=== PATIENT | male | born 1945 | race Caucasian/White ===

== ENCOUNTER 2017-07-12 11:34 | Emergency (ER) | payer MEDICARE, OTHER ==
--- NOTE | 2017-07-12 13:09 | Emergency Department Record ---
History of Present Illness - General Chief complaint: Extremity Problem Stated complaint: l foot injury Time Seen by Provider: 07/12/17 13:01 Source: Patient Mode of Arrival: Ambulatory Limitations: No limitations - History of Present Illness Initial comments: The patient is here due to injuring his L foot yesterday. He was cutting some wood and a large log fell onto the top of his L foot. He denies any other injury. The patient states he is able to walk with mild pain. MD Complaint: Extremity pain Onset/Timin -: Days(s) Location: Left, Foot History of Same: No Radiation: Proximal, Distal Severity scale (1-10): 2 Quality: Aching Consistency: Constant Worsens with: Walking, Weight bearing - Related Data Home Medications Medication Instructions Recorded Confirmed Last Taken Lisinopril 20 mg PO DAILY 07/12/17 07/12/17 1 Day Ago ~07/11/17 Pravastatin Sodium [Pravachol] 40 mg PO DAILY 07/12/17 07/12/17 1 Day Ago ~07/11/17 Allergies Allergy/AdvReac Type Severity Reaction Status Date / Time NO KNOWN DRUG ALLERGY Allergy HYPERSENSIT Uncoded 07/12/17 12:13 IVITY Travel Screening - Travel/Exposure Within Last 30 Days Have you traveled within the last 30 days?: No - Travel/Exposure Within Last Year Have you traveled outside the [place] in the last year?: No - Additonal Travel Details Have you been exposed to anyone with a communicable illness?: No - Travel Symptoms Symptom Screening: None Review of Systems Constitutional: Denies: Chills, Fever Eyes: Denies: Eye discharge ENT: Denies: Congestion Past Medical History - SOCIAL HISTORY Smoking Status: Never smoker Alcohol Use: None Drug Use: None - RESPIRATORY Hx Respiratory Disorders: No Comment:: slight SOB since donating kidney in Dec 2014 - CARDIOVASCULAR Hx Cardio Disorders: Yes Hx Hypertension: Yes - NEURO Hx Neuro Disorders: No - GI Hx GI Disorders: Yes Hx Rectal Bleeding: Yes - Hx Genitourinary Disorders: No Comment:: Pt did donate one kidney Dec, 2014 - ENDOCRINE Hx Endocrine Disorders: No - MUSCULOSKELETAL Hx Musculoskeletal Disorders: No - PSYCH Hx Psych Problems: No - HEMATOLOGY/ONCOLOGY Hx Hematology/Oncology Disorders: No Family Medical History Any Significant Family History?: Yes Physical Exam - General General Appearance: Alert, Cooperative, No acute distress - Head Head exam: Atraumatic, Normocephalic - Eye Eye exam: Normal appearance, PERRL - Extremities Extremities exam: Full ROM, Normal capillary refill, Tenderness (There is tenderness to the dorsal foot diffusely.). negative: Normal inspection (There is mod swelling and bruising to the dorsal mid to distal foot.) Course Vital Signs 07/12/17 12:02 Temperature 97.3 F L Pulse Rate 76 Respiratory 16 Rate Blood Pressure 129/82 Pulse Ox 98 - Reevaluation(s) Reevaluation #1: I did explain to the patient that the xrays jacob not demonstrate a fx. He is to ice and elevate the foot and use the post op shoe as directed. 07/12/17 13:11 Medical Decision Making - Data Complexity MDM Data: X-Ray Ordered and/or Reviewed - Radiology Data Radiology results: Report reviewed (L foot: No fx or dislocation.) Disposition Disposition: Discharge Clinical Impression: Contusion of foot Qualifiers: Encounter type: initial encounter Laterality: left Qualified Code(s): S90.32XA - Contusion of left foot, initial encounter Disposition: Home, Self-Care Condition: (1) Good Instructions: Foot Contusion (ED) Additional Instructions: Please wear the hard soled shoe for 5-7 days. Please ice and elevate the L foot for 2 days and use Tylenol for pain. Please see your PCP if not better in 3 days or return to the ER for recheck. Forms: Patient Portal Access Time of Disposition: 13:09 Quality - Quality Measures Quality Measures: N/A - Blood Pressure Screening View Details: Yes Does Patient Have Any of the Following: No Blood Pressure Classification: Normal BP Reading Systolic Measurement: 115 Diastolic Measurement: 73 Screening for High Blood Pressure: < Normal BP, F/U Not Required > [G8783] Pre-Hypertensive Follow-up Interventions: Referral to alternative/primary care provider.
[2017-07-12] MEDS: ACETAMINOPHEN 325 MG TAB PO ONE (13:21)
--- NOTE | 2017-07-14 12:33 | RADIOLOGY REPORT ---
EXAM: LEFT FOOT, THREE VIEWS HISTORY: PATIENT STATES THAT A TREE BRANCH FELL ON HIS LEFT FOOT YESTERDAY. PATIENT HAS BRUISING ALL ACROSS THE DISTAL METATARSALS. TECHNIQUE: Three views of the left foot were provided without comparison examinations. FINDINGS: There is no radiographic evidence of a fracture or dislocation of the left foot. Mild soft tissue swelling is noted over the distal metatarsals. No radiopaque foreign bodies are identified. Plantar enthesophytes are identified at the calcaneus. IMPRESSION: SOFT TISSUE SWELLING IS NOTED OVER THE DISTAL LEFT FOOT WITHOUT RADIOGRAPHIC EVIDENCE OF A FRACTURE OR DISLOCATION OF THE OSSEOUS STRUCTURES. JOB NUMBER: [id number] MTDD
== END 2017-07-12 13:29 | disposition home or self-care (01) ==
LOC: ER 11:34
DX: S90.32XA Contusion of left foot, initial encounter (principal); W22.8XXA Striking against or struck by other objects, initial encounter; Y93.H9 Activity, other involving exterior property and land maintenance, building and construction
CPT/HCPCS: 99283

== ENCOUNTER 2018-09-27 18:33 | Emergency (ER) | payer MEDICARE ==
[2018-09-27] MEDS ORDERED: 0.9 % SODIUM CHLORIDE 1,000 ML BAG IV ONE (19:08)
--- NOTE | 2018-09-27 19:13 | Emergency Department Record ---
History of Present Illness - General Chief Complaint: Abdominal Pain Stated Complaint: ABD PAIN Time Seen by Provider: 09/27/18 19:08 Source: Patient, Family Mode of Arrival: Ambulatory Limitations: No limitations - History of Present Illness Initial Comments: 72 yo male presents with epigastric pain for 8 days. The pain has been constant. It is an ache across the area between the umbilicus and the epigastrium. He notices it more when at rest and less when busy during the day. No vomiting, diarrhea or changes in stools. He has had a decrease in appetite this week. No radiation to the back. The pain radiates from the umbilicus to the epigastrium and occasionally in the right upper quadrant. No fevers. No shortness of breath or chest pain. The pain is not associated with exertion. He is a kidney donor and has one kidney. No other abdominal surgery. He has had diverticulitis in the past. This feels different than his diverticulitis. No endoscopy for many years. He takes Protonix every other day MD Complaint: Abdominal pain Onset/Timin -: Days(s) (8) Location: Epigastric, RUQ Radiation: None Migration to: Epigastric Severity: Moderate Severity scale (1-10): 3 Quality: Burning Consistency: Constant Improves With: Nothing Worsens With: Nothing Associated Symptoms: Denies other symptoms - Related Data Home Medications Medication Instructions Recorded Confirmed Last Taken Aspirin, Regular 325 mg PO DAILY 09/27/18 09/27/18 09/26/18 Omeprazole Magnesium [Prilosec Otc] 20 mg PO DAILY 09/27/18 09/27/18 09/26/18 Allergies Allergy/AdvReac Type Severity Reaction Status Date / Time No Known Drug Allergies Allergy Verified 09/27/18 19:01 Travel Screening - Travel/Exposure Within Last 30 Days Have you traveled within the last 30 days?: No - Travel/Exposure Within Last Year Have you traveled outside the [place] in the last year?: No - Additonal Travel Details Have you been exposed to anyone with a communicable illness?: No - Travel Symptoms Symptom Screening: None Review of Systems Constitutional: Denies: Chills, Fever, Malaise, Weakness Eyes: Denies: Eye discharge, Photophobia ENT: Denies: Congestion, Throat pain Respiratory: Denies: Cough, Dyspnea, Hemoptysis, Wheezes Cardiovascular: Denies: Chest pain, Dyspnea on exertion, Edema, Syncope Endocrine: Denies: Fatigue Gastrointestinal: Reports: As per HPI, Abdominal pain, Nausea. Denies: Constipation, Diarrhea, Hematemesis, Hematochezia, Melena, Vomiting Genitourinary: Denies: Dysuria, Frequency, Hematuria Musculoskeletal: Denies: Arthralgia, Back pain, Joint swelling, Myalgia Skin: Denies: Bruising, Change in color, Rash Neurological: Denies: Headache, Weakness Psychiatric: Denies: Anxiety Hematological/Lymphatic: Denies: Easy bleeding, Easy bruising Past Medical History - SOCIAL HISTORY Smoking Status: Former smoker Alcohol Use: Occasional Drug Use: None - RESPIRATORY Hx Respiratory Disorders: No Comment:: slight SOB since donating kidney in Dec 2014 - CARDIOVASCULAR Hx Cardio Disorders: Yes Hx Hypertension: Yes - NEURO Hx Neuro Disorders: No - GI Hx GI Disorders: Yes Hx Rectal Bleeding: Yes (hemhoroidal) - Hx Genitourinary Disorders: No Comment:: Pt did donate one kidney Dec, 2014 - ENDOCRINE Hx Endocrine Disorders: No - MUSCULOSKELETAL Hx Musculoskeletal Disorders: No - PSYCH Hx Psych Problems: No - HEMATOLOGY/ONCOLOGY Hx Hematology/Oncology Disorders: No Family Medical History Any Significant Family History?: No Physical Exam - General General Appearance: Alert, Oriented x3, Cooperative, No acute distress Limitations: No limitations - Head Head exam: Atraumatic, Normal inspection - Eye Eye exam: Normal appearance. negative: Conjunctival injection, Scleral icterus - ENT ENT exam: Normal exam Ear exam: Normal external inspection Nasal Exam: Normal inspection Mouth exam: Normal external inspection - Neck Neck exam: Normal inspection, Full ROM. negative: Tenderness - Respiratory Respiratory exam: Normal lung sounds bilaterally. negative: Respiratory distress - Cardiovascular Cardiovascular Exam: Regular rate, Normal rhythm, Normal heart sounds. negative : Diastolic murmur, Systolic murmur Peripheral Pulses: 2+: Radial (R), Radial (L) - GI/Abdominal GI/Abdominal exam: Soft, Normal bowel sounds, Tenderness (tender mild in the epigastrium and minimally in the RUQ). negative: Distended, Guarding, Hernia, Mass, Pulsatile mass, Rebound, Rigid - Rectal Rectal exam: Deferred - exam: Deferred - Extremities Extremities exam: Normal inspection, Full ROM, Normal capillary refill. negative: Tenderness - Back Back exam: Denies: CVA tenderness (R), CVA tenderness (L) - Neurological Neurological exam: Alert, Oriented X3 - Psychiatric Psychiatric exam: Normal affect, Normal mood. negative: Agitated, Anxious - Skin Skin exam: Dry, Intact, Normal color, Warm Course Vital Signs 09/27/18 18:44 Temperature 98.7 F Pulse Rate 70 Respiratory 16 Rate Blood Pressure 135/84 Pulse Ox 99 - Reevaluation(s) Reevaluation #1: EKG 1909 Rate 62 Rhythm Sinus [place] Left ST No acute changes Intervals Normal Mild poor R wave progression No changes from 10/10/2010 09/27/18 19:16 Mild tenderness on the examination otherwise appears well He declined pain medication 09/27/18 20:01 No acute changes on the labs CR at baseline of 1.4 (priors 1.3-1.5) 09/27/18 20:[address] scan is negative for acute process. His symptoms are mild, constant for one week, mild nausea We discussed returning for US in the AM vs OBS overnight if this could relate to gall bladder issues He elects DC home and returning for US Medical Decision Making - Lab Data Result diagrams: 09/27/18 19:20 09/27/18 19:20 Disposition Disposition: Discharge Clinical Impression: Epigastric pain Disposition: Home, Self-Care Condition: (1) Good Instructions: Abdominal Pain (ED) Additional Instructions: Return in the morning for an US of the gallbladder Return at 8:45am Do not eat 6 hours prior to arriving Return sooner if you have any fever, vomiting, chest pain or any new concerns. Forms: Patient Portal Access Time of Disposition: 20:24 Quality - Quality Measures Quality Measures: N/A - Blood Pressure Screening Does Patient Have Any of the Following: Active Dx of HTN Blood Pressure Classification: Pre-Hypertensive BP Reading Systolic Measurement: 135 Diastolic Measurement: 84 Screening for High Blood Pressure: Patient Exclusion, Hx of HTN [G9744]
[2018-09-27 19:24] LABS: BASO % 0.3 % (0-6); EOS % 3.3 % (0-6); GRAN % 63.6 % (47-80); HEMATOCRIT 43.2 % (42.0-52.0); HEMOGLOBIN 14.4 gm/dl (14.0-18.0); LYMPH % 21.8 % (16-45); MEAN CELL VOLUME 92.1 fl (81-97); MEAN CORPUSCULAR HEMOGLOBIN 30.7 pg (27-33); MEAN CORPUSCULAR HGB CONC 33.3 g/dl (32-36); PLATELET COUNT 200 K/uL (130-400); RED BLOOD COUNT 4.69 M/uL (4.40-5.70); RED CELL DISTRIBUTION WIDTH 13.6 % (11.5-14.5); WHITE BLOOD COUNT W/O DIFF 5.7 K/uL (4.2-12.2)
[2018-09-27 19:38] LABS: BILIRUBIN,TOTAL 0.7 mg/dL (0.2-1.0); CREATININE 1.4 mg/dL (0.7-1.2); TOTAL PROTEIN 6.7 g/dL (6.6-8.7)
[2018-09-27 19:43] LABS: ALB/GLOB RATIO 1.7 (1.1-1.8); ALBUMIN 4.2 g/dL (4.0-5.0)
--- NOTE | 2018-09-29 07:01 | CT SCAN REPORT ---
DATE: 09/27/2018. EXAM: CT OF THE ABDOMEN AND PELVIS WITHOUT CONTRAST. HISTORY: UPPER ABDOMINAL PAIN FOR ONE WEEK. PREVIOUS LEFT NEPHRECTOMY. TECHNIQUE: Routine noncontrast CT images of the abdomen and pelvis were obtained. COMPARISON: 11/02/2012 CT. FINDINGS: The visualized lung bases are unremarkable. The liver, gallbladder, pancreas, granulomatous spleen, adrenals, and right kidney have a normal noncontrast appearance. There has been previous left nephrectomy. A small hiatal hernia. The bowel is normal in caliber. Mild to moderate volume of stool within the colon. The appendix has a normal noncontrast appearance. The prostate is enlarged measuring 6.2 x 4.6 cm. There is aortic tortuosity without aneurysmal dilation. Mild scattered atherosclerotic calcifications. No abdominal or pelvic lymphadenopathy. No free air or free fluid. No acute osseous abnormality. IMPRESSION: 1. NO ACUTE INTRA-ABDOMINAL OR PELVIC ABNORMALITY. 2. LEFT NEPHRECTOMY. 3. A SMALL HIATAL HERNIA. 4. SPLENIC GRANULOMATOUS CALCIFICATIONS. 5. ENLARGED PROSTATE. 6. OTHER CHRONIC FINDINGS ABOVE. JOB NUMBER: [id number] [facility]
== END 2018-09-27 20:51 | disposition home or self-care (01) ==
LOC: ER 18:33
DX: R10.13 Epigastric pain (principal); I10 Essential (primary) hypertension; Z87.891 Personal history of nicotine dependence
CPT/HCPCS: 74176; 80053; 83690; 85025; 93005; 93010; 99284; J7030

== ENCOUNTER 2018-09-28 08:45 | Emergency (ER) | payer MEDICARE ==
[2018-09-28 09:03] LABS: BASO % 0.1 % (0-6); EOS % 2.9 % (0-6); GRAN % 74.9 % (47-80); HEMATOCRIT 43.7 % (42.0-52.0); HEMOGLOBIN 14.9 gm/dl (14.0-18.0); LYMPH % 14.1 % (16-45); MEAN CELL VOLUME 91.2 fl (81-97); MEAN CORPUSCULAR HEMOGLOBIN 31.1 pg (27-33); MEAN CORPUSCULAR HGB CONC 34.1 g/dl (32-36); MEAN PLATELET VOLUME 10.2 fl (7.4-10.4); PLATELET COUNT 207 K/uL (130-400); RED BLOOD COUNT 4.79 M/uL (4.40-5.70); RED CELL DISTRIBUTION WIDTH 13.7 % (11.5-14.5); WHITE BLOOD COUNT W/O DIFF 6.9 K/uL (4.2-12.2)
--- NOTE | 2018-09-28 09:10 | Emergency Department Record ---
History of Present Illness - General Chief Complaint: Recheck - Other Stated Complaint: ULTRASOUND Time Seen by Provider: 09/28/18 08:47 Source: Patient Mode of arrival: Ambulatory Limitations: No limitations - History of Present Illness Initial Comments: The patient is here for a recheck due to his upper Ap. He has had the upper pain for about a week. It does not seem to be related to eating or drinking. There has been no nausea or vomiting. The patient has been a kidney donor in the past and his one kidney is on the R. he was seen in the ER yesterday and had neg lab work and a neg CT and now is here for a GB US. Complaint: Other Onset/Timin -: Week(s) Returns Today for: Other Symptoms Since Prior Visit: No new symptoms Associated Symptoms: Abdominal pain - Related Data Allergies Allergy/AdvReac Type Severity Reaction Status Date / Time No Known Drug Allergies Allergy Verified 09/28/18 08:52 Travel Screening - Travel/Exposure Within Last 30 Days Have you traveled within the last 30 days?: No Review of Systems Constitutional: Denies: Chills, Fever Eyes: Denies: Eye discharge ENT: Denies: Congestion Respiratory: Denies: Cough, Dyspnea Past Medical History - SOCIAL HISTORY Smoking Status: Former smoker Alcohol Use: None Drug Use: None - RESPIRATORY Hx Respiratory Disorders: No Comment:: slight SOB since donating kidney in Dec 2014 - CARDIOVASCULAR Hx Cardio Disorders: Yes Hx Hypertension: Yes - NEURO Hx Neuro Disorders: No - GI Hx GI Disorders: Yes Hx Rectal Bleeding: Yes (hemhoroidal) - Hx Genitourinary Disorders: No Comment:: Pt did donate one kidney Dec, 2014 - ENDOCRINE Hx Endocrine Disorders: No - MUSCULOSKELETAL Hx Musculoskeletal Disorders: No - PSYCH Hx Psych Problems: No - HEMATOLOGY/ONCOLOGY Hx Hematology/Oncology Disorders: No Family Medical History Any Significant Family History?: No Physical Exam - General General Appearance: Alert, Oriented x3, Cooperative, No acute distress - Head Head exam: Atraumatic, Normocephalic - Eye Eye exam: Normal appearance - Neck Neck exam: Normal inspection, Full ROM. negative: Tenderness - Respiratory Respiratory exam: Normal lung sounds bilaterally. negative: Respiratory distress - Cardiovascular Cardiovascular Exam: Regular rate, Normal rhythm, Normal heart sounds - GI/Abdominal GI/Abdominal exam: Soft, Normal bowel sounds, Tenderness (There is mild upper Abd tenderness with a very soft abdomen.). negative: Distended, Guarding, Rebound, Rigid - Extremities Extremities exam: Normal inspection, Full ROM, Normal capillary refill. negative: Tenderness - Neurological Neurological exam: Alert. negative: Motor sensory deficit Course Vital Signs 09/28/18 08:47 Temperature 98.4 F Pulse Rate 74 Respiratory 20 Rate Blood Pressure 119/76 Pulse Ox 98 - Reevaluation(s) Reevaluation #1: The patient is doing well at this time. His pain is very mild and he is resting comfortably. I did discuss the issues with the vague mild pain and the need for a consultation to GI and Gen Surg. He is to eat a very bland diet and see both specialists in the [facility]ty [facility] when possible. 09/28/18 09:55 Medical Decision Making - Data Complexity MDM Data: Labs Ordered and/or Reviewed, X-Ray Ordered and/or Reviewed - Lab Data Result diagrams: 09/28/18 08:55 09/28/18 08:55 Lab Results 09/28/18 Range/Units 08:55 WBC 6.9 (4.2-12.2) K/uL RBC 4.79 (4.40-5.70) M/uL Hgb 14.9 (14.0-18.0) gm/dl Hct 43.7 (42.0-52.0) % MCV 91.2 (81-97) fl MCH 31.1 (27-33) pg MCHC 34.1 (32-36) g/dl RDW 13.7 (11.5-14.5) % Plt Count 207 (130-400) K/uL MPV 10.2 (7.4-10.4) fl Gran % 74.9 (47-80) % Lymphocytes % 14.1 L (16-45) % Monocytes % 8.0 (0-9) % Eosinophils % 2.9 (0-6) % Basophils % 0.1 (0-6) % - Radiology Data Radiology results: Report reviewed (US: Gb wall thickening but no stones or fluid.) Disposition Disposition: Discharge Clinical Impression: Epigastric pain Disposition: Home, Self-Care Condition: (2) Stable Instructions: Abdominal Pain (ED) Additional Instructions: Please increase your Prilosec to daily and take Tylenol if needed for pain. Eat a very bland diet and stay away from alcohol. Please see both Dr. Romero and Dr. Avery in the Specialty clinic when possible. Return to the ER for any worsening symptoms of pain, or any fever or vomiting. Referrals: [facility] Special[facility] [Provider Group] Forms: Patient Portal Access Time of Disposition: 09:59 Quality - Quality Measures Quality Measures: N/A - Blood Pressure Screening View Details: Yes Does Patient Have Any of the Following: No Blood Pressure Classification: Pre-Hypertensive BP Reading Systolic Measurement: 115 Diastolic Measurement: 80 Screening for High Blood Pressure: < Pre-Hypertensive BP, F/U Documented > [ G8950] Pre-Hypertensive Follow-up Interventions: Referral to alternative/primary care provider.
[2018-09-28 09:13] LABS: BLOOD UREA NITROGEN 20 mg/dL (8-23); CREATININE 1.2 mg/dL (0.7-1.2); EST GLOMERULAR FILTRATION RATE > 60 mL/min
[2018-09-28 09:14] LABS: TOTAL PROTEIN 6.6 g/dL (6.6-8.7)
[2018-09-28 09:16] LABS: GLUCOSE,RANDOM 107 mg/dL (74-109)
[2018-09-28 09:19] LABS: ALB/GLOB RATIO 1.6 (1.1-1.8); ALBUMIN 4.1 g/dL (4.0-5.0); ALKALINE PHOSPHATASE 68 U/L (40-129); ALT/SGPT 17 U/L (<41); AST/SGOT 35 U/L (10.0-50.0)
[2018-09-28 09:40] LABS: URINE APPEARANCE CLEAR; URINE BILIRUBIN NEGATIVE (NEGATIVE); URINE BLOOD TRACE-I (NEGATIVE); URINE COLOR YELLOW; URINE GLUCOSE (UA) NEGATIVE (NEGATIVE); URINE KETONE NEGATIVE (NEGATIVE); URINE LEUKOCYTE ESTERASE NEGATIVE (NEGATIVE); URINE NITRITE NEGATIVE (NEGATIVE); URINE PROTEIN NEGATIVE (NEGATIVE)
--- NOTE | 2018-09-29 07:25 | ULTRASOUND REPORT ---
EXAM: EMERGENCY COMPLETE ABDOMEN ULTRASOUND HISTORY: UPPER ABDOMINAL PAIN, RIGHT UPPER QUADRANT AND GOES TO THE SIDE. PRIOR LEFT NEPHRECTOMY FOR KIDNEY DONATION. TECHNIQUE: Complete real-time ultrasound examination of the abdomen was obtained. Comparison: No prior abdomen ultrasound with which to compare. FINDINGS: The visualized pancreas appeared negative although portions of the pancreas were obscured by overlying bowel content. The abdominal aorta appears negative with no aneurysm seen. The IVC was negative as seen. The liver appears negative with no hepatic mass or intrahepatic biliary dilatation seen. The common duct was seen and was of normal caliber. The right kidney appears negative measuring about 13.3 cm in length with no hydronephrosis evident. There is a normal renal parenchymal echogenicity compared to the adjacent hepatic parenchymal echogenicity. No gallstones identified within the gallbladder. The gallbladder does appear to have a mildly thick walled appearance, nonspecific. No pericholecystic fluid collection seen. The [employer] does indicate a positive sonographic Hair's sign, however. Clinical correlation as to cholecystitis suggested. The spleen appears negative with no splenic mass evident. The left kidney is not identified in the left renal fossa consistent with the surgical history. IMPRESSION: 1. NO GALLSTONES OR BILIARY DILATATION SEEN, HOWEVER, THE GALLBLADDER DOES HAVE A MILDLY DIFFUSELY THICK WALLED APPEARANCE WHICH IS NONSPECIFIC AND CAN JUST BE RELATED TO INCOMPLETE DISTENTION. POSITIVE SONOGRAPHIC HAIR'S SIGN INDICATED BY THE MOLDING CUTTER. 2. LEFT KIDNEY NOT IDENTIFIED CONSISTENT WITH THE SURGICAL HISTORY. 3. THE REMAINDER OF THE ABDOMEN ULTRASOUND APPEARED NEGATIVE. JOB NUMBER: [id number] MTDD
== END 2018-09-28 10:08 | disposition home or self-care (01) ==
LOC: ER 08:45
DX: R10.13 Epigastric pain (principal); I10 Essential (primary) hypertension; Z87.891 Personal history of nicotine dependence
CPT/HCPCS: 76700; 80053; 81003; 85025; 99281

== ENCOUNTER 2018-10-01 08:00 | Day surgery (SDC) | payer MEDICARE ==
[2018-10-01] MEDS ORDERED: LIDOCAINE 2% MDV (20MG/ML) 20ML VIAL IV ONE (08:01)
[2018-10-01] MEDS ORDERED: PROPOFOL 10 MG/ML VIAL IV ONE (08:01)
--- NOTE | 2018-10-02 10:20 | Operative Note ---
DATE OF SURGERY: October 01, 2018 OPERATION: ESOPHAGOGASTRODUODENOSCOPY with biopsy. PREOPERATIVE DIAGNOSIS: Dyspepsia. POSTOPERATIVE DIAGNOSES: 1. Large clean-based proximal duodenal bulb ulceration. 2. Antral gastritis. 3. 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 PROCEDURE: After informed consent was obtained from the patient, he was placed in the left lateral decubitus position in the endoscopy suite, sedated and monitored by the department of anesthesia. Once sedated, a well-lubricated [id number] gastroscope was placed in the posterior oropharynx and under direct visualization passed to the proximal, mid, and distal esophagus. The GE junction was observed demonstrating irregularity of the squamocolumnar border suggesting of short-segment Briones's. No nodularity, ulcers, erosions, strictures, or varices were seen. The gastric body demonstrated normal distensibility, normal rugal folds. The prepyloric antrum demonstrated erythema surrounding the pylorus. In the immediate post-pyloric ring duodenal bulb, there was a large ulceration without stigmata of recent hemorrhage, fresh or old blood. The remainder of the duodenal bulb and sweep were unremarkable. J-turn views of the proximal stomach were unremarkable. The endoscope was straightened. The ulcer was again inspected. Subsequently, antral gastric biopsies were obtained to rule out H pylori, GE junction biopsies were obtained to illuminate the possibility of Briones's. The endoscope was removed from the patient. RECOMMENDATIONS: I would suggest the patient avoid aspirin and nonsteroidal products if possible. I will place him on a twice per day PPI and repeat his upper endoscopy in 8 weeks. In addition, the patient did have a colonoscopy in 2014 which revealed hemorrhoids only, and a followup in 2024 would be suggested. As always, thank you for allowing me to participate in the healthcare of your patients. CC: TATY HERNANDEZ MD, FACP [facility]
== END 2018-10-01 09:28 | disposition home or self-care (01) ==
LOC: HOP 08:00
PROVIDERS: ATTEND Internal Medicine Gastroenterology
DX: R10.13 Epigastric pain (principal); K26.9 Duodenal ulcer, unspecified as acute or chronic, without hemorrhage or perforation; K29.60 Other gastritis without bleeding

== ENCOUNTER 2018-12-03 11:48 | Day surgery (SDC) | payer MEDICARE ==
[2018-12-03] MEDS ORDERED: FENTANYL PF 100MCG/2ML VIAL IV ONE (11:49)
[2018-12-03] MEDS ORDERED: LIDOCAINE 2% MDV (20MG/ML) 20ML VIAL IV ONE (11:49)
[2018-12-03] MEDS ORDERED: PROPOFOL 10 MG/ML VIAL IV ONE (11:49)
--- NOTE | 2018-12-04 10:40 | Operative Note ---
DATE OF SURGERY: 12/03/2018 OPERATION: ESOPHAGOGASTRODUODENOSCOPY with biopsy. PREOPERATIVE DIAGNOSIS: Gastric ulcer followup. POSTOPERATIVE DIAGNOSES: 1. 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 2. Small hiatal hernia. 3. Healed ulcer. PROCEDURE: After informed consent was obtained from the patient, he was placed in the left lateral decubitus position in the endoscopy suite, sedated and monitored by the department of anesthesia. Once sedated, a well-lubricated [id number] gastroscope was placed in the posterior oropharynx under direct visualization and passed to the proximal esophagus. The endoscope was advanced through the proximal, mid, and distal esophagus. The GE junction demonstrated a columnar patch suspicious for short-segment Briones's. The remainder of the esophagus was unremarkable. There was a small hiatal hernia noted. The subdiaphragmatic stomach was then inspected revealing normal distensibility. The gastric body was unremarkable. In the antrum, there was a scar consistent with area of previous ulceration. The duodenal bulb and sweep were then inspected and were unrevealing. J-turn views of the proximal stomach were unremarkable. The endoscope was then straightened and retracted to the GE junction where biopsies were once again obtained from the columnar patch. The endoscope removed from the patient with no new findings noted. RECOMMENDATIONS: I would like the patient to reduce his pantoprazole to 40 mg once daily. Further recommendations based on tissue histology. As always, thank you for allowing me to participate in the healthcare of your patients. CC: TATY HERNANDEZ MD, FACP [facility]
== END 2018-12-03 13:13 | disposition home or self-care (01) ==
LOC: HOP 11:48
PROVIDERS: ATTEND Internal Medicine Gastroenterology
DX: K25.9 Gastric ulcer, unspecified as acute or chronic, without hemorrhage or perforation (principal); K44.9 Diaphragmatic hernia without obstruction or gangrene; K31.89 Other diseases of stomach and duodenum; I10 Essential (primary) hypertension; E78.00 Pure hypercholesterolemia, unspecified
CPT/HCPCS: 43239; 00731; J3010